=== PATIENT | female | born 1985 | race Caucasian/White ===

== ENCOUNTER 2016-10-27 02:32 | Emergency (ER) | payer OTHER ==
[2016-10-27 02:40] VITALS: BP 126/79; PULSE 94; TEMP 98.4; BMI 22.3
[2016-10-27] MEDS ORDERED: KETOROLAC TROMETHAMINE 60 MG/2 ML VIAL ONE (02:46)
[2016-10-27] MEDS ORDERED: AMOXICILLIN 500 MG CAPSULE (FP) PO ONE (02:46)
[2016-10-27] MEDS ORDERED: AMOXICILLIN 250 MG CAPSULE ONE (02:46)
[2016-10-27] MEDS ORDERED: CLINDAMYCIN HCL 150 MG CAPSULE (FP) ONE (02:47)
--- NOTE | 2016-10-27 02:48 | PDOC ---
History of Present Illness - General Chief Complaint: Toothache Stated Complaint: TOOTH/EAR PAIN Time Seen by Provider: 10/27/16 02:43 History Source: Patient Exam Limitations: No Limitations - History of Present Illness Initial Comments: 10/27/16 02:50 This is a 31-year-old female who comes in complaining of dental pain radiating to her ear and now has also developed right ear pain. Patient denies any fevers or chills. Patient says she has poor dental health and has not seen a dentist in quite some time. PAST MEDICAL HISTORY: no significant history PAST SURGICAL HISTORY: no significant history FAMILY HISTORY: no pertinant history SOCIAL HISTORY: Pt lives with family and is employed. MEDICATIONS: reviewed ALLERGIES: As per nursing notes Review of Systems General: No fevers or chills, no weakness, no weight loss HEENT: No change in vision. No sore throat,. + R ear pain, plus dental/tooth pain CardioVascular: No chest pain or shortness of breath Respiratory:No cough, or wheezing. Gastrointestinal: no nausea, vomitting, diarrhea or constipation, No rectal bleeding Genitourinary: No dysuria, hematuria, or frequency Musculoskeletal: No joint or muscle pain or swelling Neurologic: No headache, vertigo, dizziness or loss of consciousness Psychiatric: nor depression Skin: No rashes or easy bruising Endocrine: no increased thirst or abnormal weight change Allergic: no skin or latex allergy All other systems reviewed and normal GENERAL: The patient is awake, alert, and fully oriented, in no acute distress. HEAD: Normal with no signs of trauma. Mouth: There is very poor dentition. There is a broken tooth on the right with erythema of the gum and some tenderness of the gum. EARS: Tympanic membranes are normal specifically right tympanic membrane is normal no evidence of otitis media. EYES: Pupils equal, round and reactive to light, extraocular movements intact, sclera anicteric, conjunctiva clear. EXTREMITIES: Normal range of motion, no edema. NEUROLOGICAL: Normal speech, normal gait. PSYCH: Normal mood, normal affect. SKIN: Warm, Dry, normal turgor, no rashes or lesions noted. assessment and plan: This is a 31-year-old female who comes in complaining of dental pain with radiation to her right ear. Patient's exam was normal with no otitis media. Patient orally said that show poor dentition. Patient given clindamycin emergency room as well as a shot of Toradol and prescriptions for Naprosyn and clindamycin and [facility] pharmacy. Patient was told she needs to follow-up with a dentist on Friday. Past History - Past Medical History Allergies/Adverse Reactions: Allergies Allergy/AdvReac Type Severity Reaction Status Date / Time No Known Allergies Allergy Unverified 10/27/16 02:35 Home Medications: Ambulatory Orders Clindamycin [Cleocin -] 300 mg PO Q6HPO #28 capsule 10/27/16 Ibuprofen [Motrin -] 400 mg PO ONCE 10/27/16 Naproxen [Naprosyn -] 500 mg PO BID #14 tablet 10/27/16 Other medical history: DENIES - Psycho/Social/Smoking Cessation Hx Anxiety: No Suicidal Ideation: No Smoking History: Current every day smoker Number of Cigarettes Smoked Daily: 10 Information on smoking cessation initiated: Yes 'Breaking Loose' booklet given: 10/27/16 *Physical Exam - Vital Signs Last Vital Signs Temp Pulse Resp BP Pulse Ox 98.4 F 94 H 16 126/79 100 10/27/16 02:37 10/27/16 02:37 10/27/16 02:37 10/27/16 02:37 10/27/16 02:37 *DC/Admit/Observation/Transfer Diagnosis at time of Disposition: Dentalgia - Discharge Dispostion Disposition: HOME Condition at time of disposition: Stable Admit: No - Prescriptions Prescriptions: Clindamycin [Cleocin -] 300 mg PO Q6HPO #28 capsule Naproxen [Naprosyn -] 500 mg PO BID #14 tablet - Patient Instructions Printed Discharge Instructions: DI for Dental Pain Additional Instructions: The pain take naproxen 1 tablet twice a day. In addition to the naproxen you can also take acetaminophen 2 tablets every 4 hours if needed. Follow-up with a dentist this week Return to the emergency department immediately with ANY new, persistent or worsening symptoms. Continue any medications as previously prescribed by your physician. You should follow up with your primary doctor as soon as possible regarding today's emergency department visit. . Please make sure your doctor reviews the results of your emergency evaluation. Thank you for coming to the Emergency Department today for your care. It was a pleasure to see you today. Please note that your evaluation is INCOMPLETE until you follow-up with your doctor.
== END 2016-10-27 02:56 | disposition home or self-care (01) ==
LOC: FER 02:32
PROC: 3E0233Z Introduction of Anti-inflammatory into Muscle, Percutaneous Approach (ICD-10-PCS; principal; 2016-10-27)
DX: K08.89 Other specified disorders of teeth and supporting structures (principal); F17.210 Nicotine dependence, cigarettes, uncomplicated
CPT/HCPCS: 99282-25

== ENCOUNTER 2018-04-01 04:06 | Emergency (ER) | payer OTHER ==
[2018-04-01 04:16] VITALS: BP 123/84; PULSE 120; TEMP 98; BMI 24.2
[2018-04-01] MEDS ORDERED: SULFAMETHOXAZOLE/TRIMETHOPRIM 800MG/160MG D.S. TABLET PO ONE (04:22)
[2018-04-01] MEDS ORDERED: SULFAMETHOXAZOLE/TRIMETHOPRIM 800MG/160MG D.S. TABLET ONE (04:22)
--- NOTE | 2018-04-01 04:24 | PDOC ---
History of Present Illness - General Chief Complaint: Pain, Acute Stated Complaint: STAPH INFECTION Time Seen by Provider: 04/01/18 04:22 History Source: Patient Exam Limitations: No Limitations - History of Present Illness Initial Comments: 04/01/18 04:27 This is a 32-year-old female comes in complaining of multiple infected pimples patient is convinced that she has staph infection. Patient otherwise denies any complaints. Patient denies any fevers or chills. Patient denies any history of similar symptoms in the past. Patient is otherwise healthy. PAST MEDICAL HISTORY: no significant history PAST SURGICAL HISTORY: no significant history FAMILY HISTORY: no pertinant history SOCIAL HISTORY: Pt lives with family and is employed. MEDICATIONS: reviewed ALLERGIES: As per nursing notes ROS General: No fevers or chills, no weakness, no weight loss HEENT: No change in vision. No sore throat,. No ear pain CardioVascular: No chest pain or shortness of breath Respiratory:No cough, or wheezing. Gastrointestinal: no nausea, vomiting, diarrhea or constipation, No rectal bleeding Genitourinary: No dysuria, hematuria, or frequency Musculoskeletal: . No joint pain or swelling Neurologic: No headache, vertigo, dizziness or loss of consciousness Psychiatric: nor depression Skin: No rashes or easy bruising, infected pimples as per history of present illness Endocrine: no increased thirst or abnormal weight change Allergic: no skin or latex allergy All other systems reviewed and normal GENERAL: The patient is awake, alert, and fully oriented, in no acute distress. HEAD: Normal with no signs of trauma. EARS: Bilateral ears are normal with normal external canal. and tympanic membranes. EYES: Pupils equal, round and reactive to light, extraocular movements intact, sclera anicteric, conjunctiva clear. EXTREMITIES: There are multiple areas on patient's body that appeared to be small pimple some of which appear to have a possible associated mild infection. Patient has a larger area on her left buttock cheek and on palpation there is no drainable collection at this time. NEUROLOGICAL: Normal speech, normal gait. grossly intact PSYCH: Normal mood, normal affect. SKIN: Warm, Dry, normal turgor, no rashes or lesions noted. Assessment plan: This is a 32-year-old female with multiple lesions that appear to be pimples. Patient told to purchase an antibacterial soap wash with it and to take Bactrim. Patient given first dose in ED and prescription sent to her pharmacy. Past History - Past Medical History Allergies/Adverse Reactions: Allergies Allergy/AdvReac Type Severity Reaction Status Date / Time No Known Allergies Allergy Verified 04/01/18 04:08 Home Medications: Ambulatory Orders Clonazepam 0.5 mg PO DAILY 04/01/18 Dextroamphetamine/Amphetamine [Adderall 10 mg Tablet] 15 mg PO DAILY 04/01/18 Sulfamethoxazole/Trimethoprim [Bactrim DS -] 1 tab PO BID #14 tablet 04/01/18 CVA: No COPD: No DVT: No Other medical history: ANXIETY - Suicide/Smoking/Psychosocial Hx Smoking History: Current every day smoker Have you smoked in the past 12 months: Yes Number of Cigarettes Smoked Daily: 20 Information on smoking cessation initiated: Yes 'Breaking Loose' booklet given: 10/27/16 Hx Alcohol Use: No Drug/Substance Use Hx: No Substance Use Type: None *Physical Exam - Vital Signs Last Vital Signs Temp Pulse Resp BP Pulse Ox 98 F 120 H 18 123/84 100 04/01/18 04:11 04/01/18 04:11 04/01/18 04:11 04/01/18 04:11 04/01/18 04:11 *DC/Admit/Observation/Transfer Diagnosis at time of Disposition: Pimples - Discharge Dispostion Disposition: HOME Condition at time of disposition: Stable - Prescriptions Prescriptions: Sulfamethoxazole/Trimethoprim [Bactrim DS -] 1 tab PO BID #14 tablet - Referrals - Patient Instructions Additional Instructions: Get an antibacterial soap and wash with the antibacterial soap. Take Bactrim 1 tablet twice a day for 7 days. Return to the emergency department immediately with ANY new, persistent or worsening symptoms. Continue any medications as previously prescribed by your physician. You should follow up with your primary doctor as soon as possible regarding today's emergency department visit. . Please make sure your doctor reviews the results of your emergency evaluation. Thank you for coming to the Emergency Department today for your care. It was a pleasure to see you today. Please note that your evaluation is INCOMPLETE until you follow-up with your doctor. - Post Discharge Activity
== END 2018-04-01 04:31 | disposition home or self-care (01) ==
LOC: FER 04:06
DX: R23.8 Other skin changes (principal); F17.210 Nicotine dependence, cigarettes, uncomplicated; F41.9 Anxiety disorder, unspecified
CPT/HCPCS: 99281-25

== ENCOUNTER 2018-04-02 09:35 | Emergency (ER) | payer SELFPAY ==
--- NOTE | 2018-04-02 09:41 | PDOC ---
History of Present Illness - General Chief Complaint: Abscess Boil Stated Complaint: ABSCESS ON BUTTOCK Time Seen by Provider: 04/02/18 09:40 - History of Present Illness Initial Comments: 04/02/18 10:14 32 yo F w no sig pmh is here with 2 days of pain in her buttock on the Left cheek. She was seen here in the ED for the same reason yesterday and prescribed Bactrim. She has taken bactrim for one day but came back bc her symptoms have not resolved. She has not had any recent fevers. About a month ago she was seen in the ED for diffuse maculopapular, erythematous , pruritic rashes that eventually crusted over to leave small scar like gonzalez on her arms and legs. She was treated with a 10 day course of doxy after which she said her symptoms improved. Then she developed this buttock pain, which developed into a small hard, indurated erythematous abscess on her L but cheek. She denies any recent fevers, chills, or infections. Denies dysuria, frequency, urgency. Denies Chest pain, SOB, difficulty breathing. Meds: 30 mg adderall IR BID, clonazepam daily 04/02/18 10:28 04/02/18 11:01 Past History - Past Medical History Allergies/Adverse Reactions: Allergies Allergy/AdvReac Type Severity Reaction Status Date / Time No Known Allergies Allergy Verified 04/01/18 04:08 Home Medications: Ambulatory Orders Clonazepam 0.5 mg PO DAILY 04/01/18 Dextroamphetamine/Amphetamine [Adderall 10 mg Tablet] 15 mg PO DAILY 04/01/18 Sulfamethoxazole/Trimethoprim [Bactrim DS -] 1 tab PO BID #14 tablet 04/01/18 CVA: No COPD: No DVT: No - Suicide/Smoking/Psychosocial Hx Smoking History: Current every day smoker Have you smoked in the past 12 months: Yes Number of Cigarettes Smoked Daily: 20 'Breaking Loose' booklet given: 10/27/16 Hx Alcohol Use: No Drug/Substance Use Hx: No Substance Use Type: None Review of Systems - Review of Systems Comments:: 04/02/18 10:57 CONSTITUTIONAL: Absent: fever, chills, diaphoresis, generalized weakness, malaise, loss of appetite HEENT: Absent: rhinorrhea, nasal congestion, throat pain, throat swelling, difficulty swallowing, mouth swelling, ear pain, eye pain, visual Changes CARDIOVASCULAR: Absent: chest pain, syncope, palpitations, irregular heart rate, lightheadedness , peripheral edema RESPIRATORY: Absent: cough, shortness of breath, dyspnea with exertion, orthopnea, wheezing, stridor, hemoptysis GASTROINTESTINAL: Absent: abdominal pain, abdominal distension, nausea, vomiting, diarrhea, constipation, melena, hematochezia GENITOURINARY: Absent: dysuria, frequency, urgency, hesitancy, hematuria, flank pain, genital pain MUSCULOSKELETAL: Absent: myalgia, arthralgia, joint swelling SKIN: Positive: Rash, itching. Absent: pallor HEMATOLOGIC/IMMUNOLOGIC: Absent: easy bleeding, easy bruising, lymphadenopathy, frequent infections ENDOCRINE: Absent: unexplained weight gain, unexplained weight loss, heat intolerance, cold intolerance NEUROLOGIC: Absent: headache, focal weakness or paresthesias, dizziness, unsteady gait, seizure, mental status changes, bladder or bowel incontinence PSYCHIATRIC: Positive: Anxiety Absent: depression, suicidal or homicidal ideation, hallucinations. *Physical Exam - Physical Exam Comments: 04/02/18 10:58 GENERAL: Well developed, well nourished. Awake and alert. No acute distress. HEENT: Normocephalic, atraumatic. PERRLA, EOMI. No conjunctival pallor. Sclera are non- icteric. Moist mucous membranes. Oropharynx is clear. NECK: Supple. Full ROM. No JVD. Carotid pulses 2+ and symmetric, without bruits. No thyromegaly. No lymphadenopathy. CARDIOVASCULAR: Tachycardic rate and regular rhythm. No murmurs, rubs, or gallops. Distal pulses are 2+ and symmetric. PULMONARY: No evidence of respiratory distress. Lungs clear to auscultation bilaterally. No wheezing, rales or rhonchi. ABDOMINAL: Soft. Non-tender. Non-distended. No rebound or guarding. No organomegaly. Normoactive bowel sounds. ANAL: There is a 4-6 mm hard, erythematous, indurated area which is painful to touch. MUSCULOSKELETAL Normal range of motion at all joints. No bony deformities or tenderness. No CVA tenderness. EXTREMITIES: No cyanosis. No clubbing. No edema. No calf tenderness. SKIN: There are diffuse maculopapular, erythematous, pruritic scabs many of which have crusted over, others have formed scars. Warm and dry. Normal capillary refill. No jaundice. NEUROLOGICAL: Alert, awake, appropriate. Cranial nerves 2-12 intact. Normal speech. Gait is normal without ataxia. PSYCHIATRIC: Cooperative. Good eye contact. Appropriate mood and affect. 04/02/18 11:01 04/02/18 11:01 Medical Decision Making - Medical Decision Making 04/02/18 11:03 32 yo F here with a small 4-6 mm indurated, erythematous painful area on her L buttock consistent with a likely abscess. She has taken bactrim for 36 hours and has not yet seen relief. Patient was advised that it usually takes at least 48 hours to notice a difference. She decided she did not want an I and D. Patient was advised to continue her Bactrim course and follow up with both a primary doc and a arc cutter plasma arc. She was given strict return precautions if her abscess does not improve. Patient came in with a HR above 100. It was determined that the cause of her elevated HR is because she is taking a very high dose of adderall every day. She took a 30 mg IR pill this morning before coming into the ER. She was advised to take a smaller dose of adderall as 30 mg is likely too large of a dose for her. *DC/Admit/Observation/Transfer Diagnosis at time of Disposition: Abscess - Discharge Dispostion Disposition: HOME Condition at time of disposition: Good Decision to Admit order: No - Referrals Referrals: Safia Rm [Staff Physician] - Joe Holder MD [Staff Physician] - - Patient Instructions Printed Discharge Instructions: DI for Anal Abscess, DI for Incision and Drainage of a Skin Abscess Additional Instructions: Please continue to take your antibiotic as prescribed for the redness and swelling which is painful. We are attaching a number for a [facility] cutter plasma arc to follow up with in the next 3 to 5 days. You can go to whichever [facility] you prefer. You can apply benadryl cream as needed for the itchiness. Please try not to scratch your lesions. Come back to the ER if you cannot handle the pain, develop a really bad fever, start vomiting, or have any other concerns. Print Language: CROATIAN - Post Discharge Activity Forms/Work/School Notes: Back to Work
[2018-04-02 09:54] VITALS: BP 125/80; TEMP 98.5; BMI 24.2
[2018-04-02] MEDS ORDERED: LIDOCAINE HCL 2% (20ML MULTI-DOSE VIAL) NR ONE (10:02)
[2018-04-02] MEDS ORDERED: IBUPROFEN 400 MG TABLET (FP) PO ONE ×2 (10:34→10:36)
--- NOTE | 2018-04-02 10:43 | PDOC ---
Attending Attestation - Resident Resident Name: Neal Ta - ED Attending Attestation I have performed the following: I have examined & evaluated the patient, The case was reviewed & discussed with the resident, I agree w/resident's findings & plan, Exceptions are as noted - HPI HPI: 04/02/18 10:36 32 F with no PMH presents to ED with pimple on her L buttock. Pt states that over the past month, she has had several rashes. Pt reports "boiling itchy" sensation in her skin. She admits to scratching and picking at her skin, which has led to several infections. Pt was seen here yesterday for same complaint and was started on Bactrim. Pt states that she took 2 doses of it. Denies any worsening of the infection but states it is very uncomfortable to sit on, which prompted her to come back today. Denies F/C. - Physicial Exam PE: 04/02/18 10:40 GENERAL: Awake, alert, and fully oriented, in no acute distress. HEAD: No signs of trauma EYES: PERRLA, EOMI, sclera anicteric, conjunctiva clear ENT: Auricles normal inspection, hearing grossly normal, nares patent, oropharynx clear without exudates. Moist mucosa NECK: Nontender, no stepoffs, Normal ROM, supple, no lymphadenopathy, JVD, or masses LUNGS: Breath sounds equal, clear to auscultation bilaterally. No wheezes, and no crackles HEART: Regular rate and rhythm, normal S1 and S2, no murmurs, rubs or gallops ABDOMEN: Soft, nontender, normoactive bowel sounds. No guarding, no rebound. No masses EXTREMITIES: Normal range of motion, no edema. No clubbing or cyanosis. No cords, erythema, or tenderness NEUROLOGICAL: Cranial nerves II through XII intact. 5/5 strength and sensation in all extremities, Normal speech, normal gait, normal cerebellar function SKIN: + 4cm area of erythema and induration on L buttock, no fluctuance, no drainage - Medical Decision Making 04/02/18 10:41 32 F with boil on L buttock with erythema and induration. Bedside US does not reveal any drainable pocket of fluid. Pt has been on abx for <48 hours and exhibits no signs of worsening infection, no systemic symptoms. Does not require IV abx at this time. - Continue bactrim - F/u dermatology Pt noted to be tachycardic in ED, but no fevers or hypotension. Pt likely tachy 2/2 pain. She also admits to drinking 3 shots of espresso this morning. - Motrin for pain control - Recheck vitals 04/02/18 10:57 Repeat HR 90 Pt is well appearing, with normal vitals. Clinically stable for DC at this time. I discussed the physical exam findings, ancillary test results and final diagnoses with the patient. I answered all of the patient's questions. The patient was satisfied with the care received and felt comfortable with the discharge plan and treatment plan. The patient agrees to follow up with the primary care physician within 24-72 hours.
[2018-04-02 10:48] VITALS: PULSE 90
== END 2018-04-02 10:55 | disposition home or self-care (01) ==
LOC: FER 09:35
DX: L02.31 Cutaneous abscess of buttock (principal); F17.210 Nicotine dependence, cigarettes, uncomplicated
CPT/HCPCS: 99281-25

== ENCOUNTER 2018-10-31 20:35 | Emergency (ER) | payer OTHER ==
[2018-10-31 20:52] VITALS: BP 131/81; PULSE 85; TEMP 100; BMI 26.2
[2018-10-31] MEDS ORDERED: SODIUM CHLORIDE 1,000 ML IV ONE (20:55)
[2018-10-31 20:57] LABS: EPITHELIAL CELLS FEW /hpf
[2018-10-31 20:59] LABS: HCG,QUALITATIVE URINE Negative
[2018-10-31] MEDS ORDERED: KETOROLAC TROMETHAMINE 30 MG/1 ML VIAL IVPUSH ONE (21:01)
--- NOTE | 2018-10-31 21:02 | PDOC ---
Documentation entered by Reagan Bowie SCRIBE, acting as scribe for Ann Ashford MD. Ann Ashford MD: This documentation has been prepared by the Azeb jose Xhesika, SCRIBE, under my direction and personally reviewed by me in its entirety. I confirm that the documentation accurately reflects all work, treatment, procedures, and medical decision making performed by me. History of Present Illness - General Chief Complaint: Pain, Acute Stated Complaint: BACK PAIN Time Seen by Provider: 10/31/18 20:43 History Source: Patient Exam Limitations: No Limitations - History of Present Illness Initial Comments: 10/31/18 21:06 The patient is a 33 year old female, with no significant past medical history of who presents to the emergency department with 3 days of lower back pain. The patient states her back pain began on her right side and radiated to her L side. The patient states she endorses fevers, chills, and nausea, secondary to her back pain. The patient denies pressure or burning on urination. The patient denies chest pain, shortness of breath, headache or dizziness. The patient denies vomit, diarrhea or constipation. The patient denies dysuria, frequency, urgency or hematuria. PAST MEDICAL HISTORY: no significant history PAST SURGICAL HISTORY: no significant history FAMILY HISTORY: no pertinent history SOCIAL HISTORY: Pt lives with family and is employed. MEDICATIONS: reviewed ALLERGIES: As per nursing notes 10/31/18 21:09 Assessment and plan: This is a 33-year-old female who comes in with 3 days of low back pain. Patient has history significant for frequent urinary tract infections in the past and recently finished antibiotics for urinary tract infection. Patient said she spiked a fever this afternoon which prompted her to come in after she talked to her primary care doctor and was told it may be a kidney infection. Workup was initiated including CBC, comp, CAT scan, urine, urine Patient urinalysis was positive for leukocytes red sites and bacteria so patient given ceftriaxone for presumptive pyelonephritis patient's white count was normal with no left shift CAT scan is pending Past History - Past Medical History Allergies/Adverse Reactions: Allergies Allergy/AdvReac Type Severity Reaction Status Date / Time No Known Allergies Allergy Verified 04/01/18 04:08 Home Medications: Ambulatory Orders Clonazepam 1 mg PO DAILY 04/01/18 Dextroamphetamine/Amphetamine [Adderall 10 mg Tablet] 30 mg PO DAILY 04/01/18 Sulfamethoxazole/Trimethoprim [Bactrim DS -] 1 tab PO BID #20 tablet 10/31/18 CVA: No COPD: No DVT: No Psychiatric Problems: Yes - Suicide/Smoking/Psychosocial Hx Smoking History: Current every day smoker Have you smoked in the past 12 months: Yes Number of Cigarettes Smoked Daily: 10 Information on smoking cessation initiated: Yes 'Breaking Loose' booklet given: 10/27/16 Hx Alcohol Use: No Drug/Substance Use Hx: No Substance Use Type: None Review of Systems - Review of Systems Able to Perform ROS?: Yes Comments:: 10/31/18 21:07 General: (+) fevers or chills. no weakness, no weight loss HEENT: No change in vision. No sore throat,. No ear pain CardioVascular: No chest pain or shortness of breath Respiratory:No cough, or wheezing. Gastrointestinal: (+) nausea. No vomiting, diarrhea or constipation, No rectal bleeding Genitourinary: No dysuria, hematuria, or frequency Musculoskeletal: (+) back pain. No joint or muscle pain or swelling Neurologic: No headache, vertigo, dizziness or loss of consciousness Psychiatric: nor depression Skin: No rashes or easy bruising Endocrine: no increased thirst or abnormal weight change Allergic: no skin or latex allergy All other systems reviewed and normal *Physical Exam - Vital Signs Last Vital Signs Temp Pulse Resp BP Pulse Ox 100 F H 85 16 131/81 99 10/31/18 20:38 10/31/18 20:38 10/31/18 20:38 10/31/18 20:38 10/31/18 20:38 - Physical Exam Comments: 10/31/18 21:07 General: Well-nourished well-developed individual, no acute distress HEENT: Throat: Normal, tonsils normal, no erythema or exudate Neck: Supple, no meningeal signs, no lymphadenopathy Eyes::Pupils equal reactive and round, extraocular motion intact Chest: Nontender to palpation Cardiac: S1-S2 normal, regular rate and rhythm, no murmurs rubs or gallops Respiratory: Lungs clear to auscultation bilateral Abdomen: Soft, nondistended, normal bowel sounds, nontender to palpation diffusely Back: (+) Right CVA tenderness. (+) R flank tenderness Extremities: Warm, dry, no cyanosis, clubbing, or edema Skin: No rashes Neuro: Alert and oriented x3, nonfocal exam, grossly intact, normal gait Psych: Normal mood and affect ED Treatment Course - LABORATORY CBC & Chemistry Diagram: 10/31/18 20:55 10/31/18 20:55 - ADDITIONAL ORDERS Additional order review: Laboratory Results 10/31/18 20:35 Urine Color Yellow Urine Appearance Clear Urine pH 6.5 Urine Protein Negative Urine Glucose (UA) Negative Urine Ketones Negative Urine Blood 1+ H Urine Nitrite Negative Urine Bilirubin Negative Urine Urobilinogen 0.2 Ur Leukocyte Esterase 2+ Urine RBC 5-10 Urine WBC 20-40 Ur Transition Epith Cell Few Urine Bacteria Few Urine HCG, Qual Negative - RADIOLOGY Radiology Studies Ordered: Category Date Time Status SPIRAL- RENAL-STONE CT [CT] Stat CT Scan 10/31/18 20:54 Ordered *DC/Admit/Observation/Transfer Diagnosis at time of Disposition: Cystitis - Discharge Dispostion Disposition: HOME Condition at time of disposition: Stable Decision to Admit order: No - Referrals - Patient Instructions Additional Instructions: Take Bactrim 1 tablet twice a day for 10 days. Tylenol or Motrin for pain. Return to the emergency department immediately with ANY new, persistent or worsening symptoms. Continue any medications as previously prescribed by your physician. You should follow up with your primary doctor as soon as possible regarding today's emergency department visit. . Please make sure your doctor reviews the results of your emergency evaluation. Thank you for coming to the Emergency Department today for your care. It was a pleasure to see you today. Please note that your evaluation is INCOMPLETE until you follow-up with your doctor. - Post Discharge Activity
[2018-10-31 21:08] LABS: BASO % 0.5 % (0-2.0); HEMOGLOBIN 14.1 GM/dl (10.7-15.3)
[2018-10-31] MEDS ORDERED: KETOROLAC TROMETHAMINE 30 MG/1 ML VIAL ONE (21:10)
[2018-10-31 21:11] LABS: EOS % 0.4 % (0-4.5); HEMATOCRIT 41.3 % (32.4-45.2); LYMPH % 18.7 % (8-40); MCH 31.7 pg (25.7-33.7); MCHC 34.3 g/dl (32.0-36.0); MEAN CELL VOLUME 92.4 fl (80-96); MEAN PLT VOLUME 8.6 fl (7.5-11.1); NEUT % 69.4 % (42.8-82.8); PLATELET COUNT 291 K/MM3 (134-434); RBC 4.47 M/mm3 (3.60-5.2); RDW 11.8 % (11.6-15.6)
[2018-10-31 21:29] LABS: ALBUMIN 3.7 g/dl (3.4-5.0); ALK PHOS 68 U/L (45-117); ANION GAP 7 MMOL/L (8-16); BILIRUBIN,TOTAL 0.3 mg/dl (0.2-1); BLOOD UREA NITROGEN 6 mg/dl (7-18); CALCIUM 8.9 mg/dl (8.5-10); CHLORIDE 100 mmol/L (98-107); CO2 28 mmol/L (21-32); CREATININE 0.9 mg/dl (0.55-1.3); GLUCOSE,RANDOM 109 mg/dl (74-106); POTASSIUM 3.5 mmol/L (3.5-5.1); SGOT/AST 51 U/L (15-37); SGPT/ALT 37 U/L (13-61); SODIUM 135 mmol/L (136-145); TOT PROT 6.9 g/dl (6.4-8.2)
[2018-10-31] MEDS ORDERED: CEFTRIAXONE 1,000 MG in DEXTROSE 5%-WATER - 50 ML IVPB ONE (22:04)
[2018-10-31] MEDS ORDERED: cefTRIAXone SODIUM 1 GM VIAL ONE (22:05)
--- NOTE | 2018-11-04 11:55 | PDOC ---
Patient Follow-up (Call Back) - Post ED Follow - Up Condition at time of discharge: Stable Disposition at time of original discharge: HOME - Disposition Additional Instructions/Notes: Patient contacted by phone. Informed of the resistant urinary tract organism. Return to ER. States that her symptoms have resolved. No further back pain or fever since taking the antibiotic. Furnished another specimen which was sent for UA and STEWARD/STEWARDESS ECONOMY CLASS. Instructed to continue Bactrim until results of the culture are obtained 24 hours. Even though the organism is resistant in vitro, since the patient's symptoms seem to be improving, and there is limited choice of other oral antibiotics in the resistance profile, Bactrim may be effective. Continue present medication until results of UA and culture are available 24 hours.
== END 2018-10-31 22:56 | disposition home or self-care (01) ==
LOC: FER 20:35
PROC: 3E0337Z Introduction of Electrolytic and Water Balance Substance into Peripheral Vein, Percutaneous Approach (ICD-10-PCS; principal; 2018-10-31)
PROC: 3E03329 Introduction of Other Anti-infective into Peripheral Vein, Percutaneous Approach (ICD-10-PCS; 2018-10-31)
PROC: 3E0333Z Introduction of Anti-inflammatory into Peripheral Vein, Percutaneous Approach (ICD-10-PCS; 2018-10-31)
DX: N30.00 Acute cystitis without hematuria (principal); B96.89 Other specified bacterial agents as the cause of diseases classified elsewhere
CPT/HCPCS: 36415; 74176-TC; 80053; 81003; 81015; 84703; 85025; 87086; 87186; 96361; 96365; 96375; 99283-25; J7030

== ENCOUNTER 2018-11-04 12:18 | Emergency (ER) | payer OTHER ==
[2018-11-04 12:24] VITALS: BP 100/58; PULSE 79; TEMP 97.7; BMI 22.2
--- NOTE | 2018-11-04 12:39 | PDOC ---
History of Present Illness - General Chief Complaint: Urinary Problem Stated Complaint: SENT TO ER Time Seen by Provider: 11/04/18 12:31 - History of Present Illness Initial Comments: 11/04/18 15:10 Patient left before being seen, eloped the emergency room. Past History - Past Medical History Allergies/Adverse Reactions: Allergies Allergy/AdvReac Type Severity Reaction Status Date / Time No Known Allergies Allergy Verified 11/04/18 12:19 Home Medications: Ambulatory Orders Clonazepam 1 mg PO DAILY 04/01/18 Dextroamphetamine/Amphetamine [Adderall 10 mg Tablet] 30 mg PO DAILY 04/01/18 Sulfamethoxazole/Trimethoprim [Bactrim DS -] 1 tab PO BID #20 tablet 10/31/18 CVA: No COPD: No DVT: No Psychiatric Problems: Yes - Suicide/Smoking/Psychosocial Hx Smoking History: Current every day smoker Have you smoked in the past 12 months: Yes Number of Cigarettes Smoked Daily: 20 Information on smoking cessation initiated: Yes 'Breaking Loose' booklet given: 10/27/16 Hx Alcohol Use: No Drug/Substance Use Hx: Yes (ELVA) Substance Use Type: None *Physical Exam - Vital Signs Last Vital Signs Temp Pulse Resp BP Pulse Ox 97.7 F 79 17 100/58 L 98 11/04/18 12:20 11/04/18 12:20 11/04/18 12:20 11/04/18 12:20 11/04/18 12:20 *DC/Admit/Observation/Transfer Diagnosis at time of Disposition: Eloped from emergency department - Discharge Dispostion Disposition: ELOPED - Referrals - Patient Instructions - Post Discharge Activity
== END 2018-11-04 13:34 | disposition left against medical advice (07) ==
LOC: FER 12:18
DX: N39.9 Disorder of urinary system, unspecified (principal); F17.210 Nicotine dependence, cigarettes, uncomplicated; F99 Mental disorder, not otherwise specified
CPT/HCPCS: 81003; 87086; 99282-25